=== PATIENT | male | born 1980 | race African-American/Black ===

== ENCOUNTER 2024-12-05 16:31 | Inpatient (IN) | payer OTHER ==
[2024-12-05 17:08] VITALS: BMI 22.0
[2024-12-05] MEDS ORDERED: chlordiazePOXIDE HCL 25 MG CAPSULE PO PRN (17:09)
[2024-12-05] MEDS ORDERED: LOPERAMIDE HCL 2 MG CAPSULE PO PRN (17:12)
[2024-12-05] MEDS ORDERED: BISMUTH SUBSALICYLATE 524 MG/30 ML PO PRN (17:12)
[2024-12-05] MEDS ORDERED: BENZONATATE 200 MG CAPSULE PO PRN (17:12)
[2024-12-05] MEDS ORDERED: NALOXONE (NARCAN) HCL 4 MG/0.1 ML SPRAY NS PRN (17:12)
[2024-12-05] MEDS ORDERED: ACETAMINOPHEN 325 MG TABLET (FP) PO PRN (17:12)
[2024-12-05] MEDS ORDERED: BENZOCAINE/MENTHOL (CHLORASEPTIC ) LOZENGE MM PRN (17:12)
[2024-12-05] MEDS ORDERED: MAG HYDROX/AL HYDROX/SIMETH 30 ML UNIT-DOSE CUP PO PRN (17:12)
[2024-12-05] MEDS ORDERED: IBUPROFEN 400 MG TABLET (FP) PO PRN (17:12)
[2024-12-05] MEDS ORDERED: MAGNESIUM HYDROX 2400MG/30ML ORAL SUSPENSION 30 ML CUP PO PRN (17:12)
[2024-12-05] MEDS ORDERED: ONDANSETRON *ODT* 4 MG TABLET SL PRN (17:12)
[2024-12-05] MEDS ORDERED: DICYCLOMINE HCL 10 MG CAPSULE PO PRN (17:12)
[2024-12-05] MEDS ORDERED: guaiFENesin 600 MG TABLET.ER (FP) PO PRN (17:12)
[2024-12-05] MEDS ORDERED: POLYETHYLENE GLYCOL (HEALTHYLAX) 3350 17 GM PACKET PO PRN (17:12)
[2024-12-05] MEDS ORDERED: IBUPROFEN 600 MG TABLET (FP) PO PRN (17:12)
[2024-12-05] MEDS ORDERED: METOPROLOL TARTRATE 25 MG TABLET (FP) ONE (17:47)
[2024-12-05] MEDS ORDERED: chlordiazePOXIDE HCL 25 MG CAPSULE ONE (17:47)
[2024-12-05] MEDS: chlordiazePOXIDE HCL 25 MG CAPSULE PO SCH (17:55)
[2024-12-05] MEDS: METOPROLOL TARTRATE 25 MG TABLET (FP) PO ONE (17:55)
[2024-12-05] MEDS: METHOCARBAMOL 500 MG TABLET PO PRN (18:19)
[2024-12-05] MEDS: cloNIDine HCL 0.1 MG TABLET PO ONE (21:20)
[2024-12-05] MEDS: THIAMINE 100 MG TABLET PO SCH (22:42)
[2024-12-05] MEDS: MELATONIN 5 MG TABLETS PO SCH (22:42)
[2024-12-06] MEDS: chlordiazePOXIDE HCL 25 MG CAPSULE PO SCH (05:51)
[2024-12-06] MEDS: PRENATAL VITAMINS W/ FOLIC ACID TABLET (FP) PO SCH (09:56)
[2024-12-06] MEDS: METOPROLOL TARTRATE 25 MG TABLET (FP) PO SCH (10:27)
[2024-12-06 11:09] LABS: HEMATOCRIT 36.5 % (35.4-49); HEMOGLOBIN 12.4 GM/dL (11.7-16.9); MCH 32.3 pg (25.7-33.7); MEAN CELL VOLUME 95.1 fl (80-96); MEAN PLT VOLUME 8.2 fl (7.5-11.1); PLATELET COUNT 122 10^3/uL (134-434); RBC 3.84 M/mm3 (4.00-5.60); RDW 13.3 % (11.9-15.9)
[2024-12-06 11:47] LABS: ALBUMIN 3.4 g/dl (3.4-5.0); BLOOD UREA NITROGEN 8.7 mg/dL (7-18); CALCIUM 9.8 mg/dL (8.5-10.1)
[2024-12-06 11:50] LABS: CREATININE 0.9 mg/dL (0.55-1.3)
[2024-12-06 11:52] LABS: BILIRUBIN,TOTAL 0.8 mg/dL (0.2-1); TOT PROT 7.2 g/dl (6.4-8.2)
[2024-12-06] MEDS: POTASSIUM CHLORIDE ORAL LIQUID 20 MEQ/15 ML PO ONE ×2 (12:45→17:26)
[2024-12-07] MEDS: chlordiazePOXIDE HCL 10 MG CAPSULE PO SCH (06:00)
[2024-12-08] MEDS ORDERED: chlordiazePOXIDE HCL 10 MG CAPSULE PO PRN
[2024-12-08] MEDS: chlordiazePOXIDE HCL 10 MG CAPSULE PO SCH (05:59)
[2024-12-08] MEDS: hydrOXYzine PAMOATE 25 MG CAPSULE (FP) PO PRN (06:01)
[2024-12-09] MEDS: chlordiazePOXIDE HCL 10 MG CAPSULE PO ONE (05:19)
[2024-12-09] MEDS: NALOXONE (NYS OPIOID OVERDOSE PROGRAM) 4 MG/0.1 ML SPRAY NS SCH (10:13)
[2024-12-09 12:32] VITALS: BP 146/98; PULSE 88; RESP 20; TEMP 97.7
== END 2024-12-09 09:59 | disposition home or self-care (01) | DRG 775 ==
LOC: YASAS 16:31 → Y3N 17:40
PROVIDERS: ADMIT Allergy & Immunology; ATTEND Allergy & Immunology
PROC: HZ2ZZZZ Detoxification Services for Substance Abuse Treatment (ICD-10-PCS; principal; 2024-12-05)
DX: F10.230 Alcohol dependence with withdrawal, uncomplicated (principal); I10 Essential (primary) hypertension; R79.89 Other specified abnormal findings of blood chemistry; Z59.01 Sheltered homelessness
CPT/HCPCS: 36415; 80053; 80305; 80307; 84132; 85027; 86780; 93005; 93010